=== PATIENT | male | born 1960 | race Caucasian/White ===

== ENCOUNTER 2018-01-24 20:03 | Emergency (ER) | payer BC ==
--- NOTE | 2018-01-24 20:27 | EDM.PDOC ---
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 TODAY , HAD BEEN MOVING HIS HEAVY FURNITURE OUT OF HIS HOUSE TODAY, AND AT 8 PM HAD ONSET OF 8/10 MID STERNAL CHEST PAIN WITH RIGHT ARM CRAMPING AND TOE CRAMPING WHICH HE RELATES TO THE HARD WORK OF CARRYING FURNITURE TODAY; HE HAS ASSOCIATED WITH [employer]. HAD SIMILAR EPISODE SEVERAL YEARS AGO AND TOLD THAT HE HAD A BIG HEART BUT NO HEART ATTACK ,BUT HAD CAD. HAS BEEN TREATED FRO HYPERTENSION AND BEEN FOLLOWED BY DR JEANE BARTHOLOMEW [employer] [facility] Onset: Today Duration: Minutes: (45 MINUTES AGO) Location: Reports: Chest, Abdomen Quality: Reports: Sharp Severity: Severe - Related Data Allergies Allergy/AdvReac Type Severity Reaction Status Date / Time No Known Allergies Allergy Verified 01/24/18 20:33 Home Meds: Home Meds Ascorbic Acid [Vitamin C] 0 mg PO DAILY 01/24/18 [History] Aspirin [Halfprin] 81 mg PO DAILY 01/24/18 [History] Cyanocobalamin (Vitamin B-12) [Vitamin B-12] 0 mcg PO DAILY 01/24/18 [History] LORazepam [Ativan] 0 mg PO ASDIRECTED 01/24/18 [History] Metoprolol Succinate [Toprol Xl] 0 mg PO DAILY 01/24/18 [History] Omeprazole 20 mg PO DAILY 01/24/18 [History] ED ROS GENERAL - Review of Systems Review Of Systems: See Below Constitutional: Reports: No Symptoms HEENT: Reports: No Symptoms Respiratory: Reports: No Symptoms Cardiovascular: Reports: Chest Pain Endocrine: Reports: No Symptoms GI/Abdominal: Reports: No Symptoms : Reports: No Symptoms Musculoskeletal: Reports: No Symptoms Skin: Reports: No Symptoms Neurological: Reports: No Symptoms Psychiatric: Reports: No Symptoms Hematologic/Lymphatic: Reports: No Symptoms Immunologic: Reports: No Symptoms ED EXAM, GENERAL - Physical Exam Exam: See Below Free Text/Narrative:: ANXIOUS 8/10 PAIN HAS DECREASED TO 5/10 MILDLY DIAPHORETIC Exam Limited By: No Limitations General Appearance: Alert, Moderate Distress Eye Exam: Bilateral Eye: Normal Inspection Ears: Normal External Exam, Normal Canal, Hearing Grossly Normal, Normal TMs Nose: Normal Inspection, Normal Mucosa Throat/Mouth: Normal Inspection, Normal Lips, Normal Teeth, Normal Gums, Normal Oropharynx, Normal Voice Head: Atraumatic, Normocephalic, Sinus Tenderness Neck: Normal Inspection, Supple, Non-Tender, Full Range of Motion Respiratory/Chest: No Respiratory Distress, Lungs Clear, Normal Breath Sounds, No Accessory Muscle Use Cardiovascular: Normal Peripheral Pulses, Regular Rate, Rhythm, No Edema, No Gallop, No JVD, No Murmur, No Rub Peripheral Pulses: 1+: Carotid (L), Carotid (R), Brachial (L), Brachial (R), Radial (L), Radial (R), Dorsalis Pedis (L), Dorsalis Pedis (R) GI/Abdominal: Normal Bowel Sounds, Soft, Non-Tender, No Organomegaly, No Distention, No Abnormal Bruit, No Mass (Male) Exam: No Hernia Rectal (Males) Exam: Normal Exam Back Exam: Normal Inspection Extremities: Normal Inspection, Non-Tender, No Pedal Edema, Normal Capillary Refill Neurological: Alert, CN II-XII Intact, Normal Cognition, Normal Reflexes Psychiatric: Normal Affect, Anxious Skin Exam: Warm, No Rash, Diaphoretic Lymphatic: No Adenopathy EKG INTERPRETATION Rhythm: Other (SINUS TACHYCARDIA) [place]: Normal P-Wave: Present QRS: Normal ST-T: Normal QT: Normal Comparison: NA - No Prior EKG Course - Vital Signs Last Recorded V/S: Last Vital Signs Temp 36.6 C 01/24/18 20:03 Pulse 114 H 01/24/18 20:03 Resp 28 H 01/24/18 20:03 BP 102/80 01/24/18 20:03 Pulse Ox 100 01/24/18 21:00 96/56 830PM HR 104, R 17 99% O2 SATS - Orders/Labs/Meds Orders: Active Orders 24 hr Category Date Time Status CXR [Chest 1V Frontal] [CR] Stat Exams 01/24/18 20:17 Taken Sodium Chloride 0.9% [Normal Saline] 1,000 ml Med 01/24/18 20:30 Active IV ASDIRECTED Sodium Chloride 0.9% [Normal Saline] 1,000 ml Med 01/24/18 21:30 Active IV ASDIRECTED EKG 12 Lead [EK] Routine Ther 01/24/18 20:17 Ordered EKG 12 Lead [EK] Routine Ther 01/24/18 20:17 Stop Req EKG 12 Lead [EK] Routine Ther 01/24/18 20:43 Ordered Medication Orders Sodium Chloride (Normal Saline) 1,000 mls @ 150 mls/hr IV ASDIRECTED SLADE Last Admin: 01/24/18 20:35 Dose: 150 mls/hr Sodium Chloride (Normal Saline) 1,000 mls @ 999 mls/hr IV ASDIRECTED SLADE Last Admin: 01/24/18 21:29 Dose: 999 mls/hr Labs: Laboratory Tests 01/24/18 01/24/18 01/24/18 Range/Units 20:25 20:25 20:25 WBC 18.0 H (4.5-12.0) X10-3/uL RBC 5.46 (4.30-5.75) x10(6)uL Hgb 18.0 H (11.5-15.5) g/dL Hct 52.2 H (30.0-51.3) % MCV 95.5 (80-96) fL MCH 33.0 (27.7-33.6) pg MCHC 34.6 (32.2-35.4) g/dL RDW 13.7 (11.5-15.5) % Plt Count 352 (125-369) X10(3)uL MPV 8.1 (7.4-10.4) fL Add Manual Diff Yes Neutrophils % (Manual) 77 (46-82) % Band Neutrophils % 7 H (0-6) % Lymphocytes % (Manual) 8 L (13-37) % Monocytes % (Manual) 7 (4-12) % Basophils % (Manual) 1 (0-2) % D-Dimer, Quantitative 0.26 (0.0-0.59) mg/LFEU Sodium (135-145) mmol/L Potassium (3.5-5.3) mmol/L Chloride (100-110) mmol/L Carbon Dioxide (21-32) mmol/L BUN (7-18) mg/dL Creatinine (0.70-1.30) mg/dL Est Cr Clr Drug Dosing Estimated GFR (MDRD) (>60) BUN/Creatinine Ratio (9-20) Glucose (80-116) mg/dL Calcium (8.6-10.2) mg/dL Total Bilirubin (0.1-1.3) mg/dL AST (5-25) IU/L ALT (12-36) U/L Alkaline Phosphatase (56-112) IU/L Troponin I < 0.017 L (<0.017-0.056) ng/mL Total Protein (6.0-8.0) g/dL Albumin (3.5-5.2) g/dL Globulin g/dL Albumin/Globulin Ratio 01/24/18 01/24/18 Range/Units 20:25 22:03 WBC (4.5-12.0) X10-3/uL RBC (4.30-5.75) x10(6)uL Hgb (11.5-15.5) g/dL Hct (30.0-51.3) % MCV (80-96) fL MCH (27.7-33.6) pg MCHC (32.2-35.4) g/dL RDW (11.5-15.5) % Plt Count (125-369) X10(3)uL MPV (7.4-10.4) fL Add Manual Diff Neutrophils % (Manual) (46-82) % Band Neutrophils % (0-6) % Lymphocytes % (Manual) (13-37) % Monocytes % (Manual) (4-12) % Basophils % (Manual) (0-2) % D-Dimer, Quantitative (0.0-0.59) mg/LFEU Sodium 138 (135-145) mmol/L Potassium 4.1 (3.5-5.3) mmol/L Chloride 101 (100-110) mmol/L Carbon Dioxide 20 L (21-32) mmol/L BUN 22 H (7-18) mg/dL Creatinine 2.4 H* (0.70-1.30) mg/dL Est Cr Clr Drug Dosing TNP Estimated GFR (MDRD) 28 L (>60) BUN/Creatinine Ratio 9.2 (9-20) Glucose 126 H (80-116) mg/dL Calcium 10.1 (8.6-10.2) mg/dL Total Bilirubin 2.7 H (0.1-1.3) mg/dL AST 20 (5-25) IU/L ALT 34 (12-36) U/L Alkaline Phosphatase 68 (56-112) IU/L Troponin I < 0.017 L (<0.017-0.056) ng/mL Total Protein 8.8 H (6.0-8.0) g/dL Albumin 4.8 (3.5-5.2) g/dL Globulin 4.0 g/dL Albumin/Globulin Ratio 1.2 Meds: Medications Generic Name Dose Route Start Last Admin Trade Name Freq PRN Reason Stop Dose Admin Sodium Chloride 1,000 mls @ 150 mls/hr 01/24/18 20:30 01/24/18 20:35 Normal Saline IV 150 mls/hr ASDIRECTED SLADE Administration Sodium Chloride 1,000 mls @ 999 mls/hr 01/24/18 21:30 01/24/18 21:29 Normal Saline IV 999 mls/hr ASDIRECTED SLADE Administration Discontinued Medications Generic Name Dose Route Start Last Admin Trade Name Freq PRN Reason Stop Dose Admin Aspirin 324 mg 01/24/18 20:28 01/24/18 20:07 Aspirin PO 01/24/18 20:29 324 mg ONETIME ONE Administration Lorazepam 1 mg 01/24/18 21:05 01/24/18 22:42 Ativan IVPUSH 01/24/18 21:06 Not Given ONETIME ONE Lorazepam 0.5 mg 01/24/18 21:10 01/24/18 21:21 Ativan IVPUSH 01/24/18 21:11 0.5 mg ONETIME ONE Administration Ondansetron HCl 4 mg 01/24/18 20:29 01/24/18 20:31 Zofran IVPUSH 01/24/18 20:30 4 mg ONETIME ONE Administration Departure - Departure Time of Disposition: 22:50 Disposition: Home, Self-Care 01 Clinical Impression: Dehydration, Vomiting, Food poisoning, Chronic kidney disease, stage 3, Bandemia Instructions: Food Poisoning and Marine Toxins, Dehydration, Adult, Easy-to- Read Referrals: PCP,None [Primary Care Provider] - Forms: ED Department Discharge Additional Instructions: YOUR CHEST PAIN AND TRANSIENT LOW LOW BLOOD PRESSURE CAME FROM: THE ABDOMINAL PAIN AND THE SUBSEQUENT VOMITING FROM ECOLI MEDIATED ENTEROTOXIN TACO REYES "FOOD POISONING" YOUR BP ALSO WAS LOW FROM THE DEHYDRATION SINCE YOU ARE GOING TO SEE YOUR MD TOMORROW I HAVE GIVEN TO YOU THE RECORDS FROM [facility] TO GIVE TO HIM YOU NEED TO HAVE YOUR RENAL (KIDNEY) BLOOD TESTS REPEATED I DO NOT THINK YOU HAD A HEMOLYTIC UREMIA SYNDROME DRINK AT LEAST 2 QUARTS OF WATER ADAY - My Orders Last 24 Hours: My Active Orders 01/24/18 20:17 CXR [Chest 1V Frontal] [CR] Stat EKG 12 Lead [EK] Routine EKG 12 Lead [EK] Routine 01/24/18 20:30 Sodium Chloride 0.9% [Normal Saline] 1,000 ml IV ASDIRECTED 01/24/18 20:43 EKG 12 Lead [EK] Routine 01/24/18 21:30 Sodium Chloride 0.9% [Normal Saline] 1,000 ml IV ASDIRECTED - Assessment/Plan Last 24 Hours: My Active Orders 01/24/18 20:17 CXR [Chest 1V Frontal] [CR] Stat EKG 12 Lead [EK] Routine EKG 12 Lead [EK] Routine 01/24/18 20:30 Sodium Chloride 0.9% [Normal Saline] 1,000 ml IV ASDIRECTED 01/24/18 20:43 EKG 12 Lead [EK] Routine 01/24/18 21:30 Sodium Chloride 0.9% [Normal Saline] 1,000 ml IV ASDIRECTED Assessment:: NO MYOCARIDIAL INFARCTION, LOW BLOOD PRESSURE FORM DEHYDRATION, ECOLI MEDIATED VOMITING. CHRONIC KIDNEY DISEASE LAB RESULT SUGGEST HE STAGE 4 KIDNEY DISEASE, THIS WILL PRAOBABLY GET BETTER WITH FUTHER HYDRATION, RESOLUTION OF THE CHEST PAIN AFTER THE VOMITING, MYALGIA MEDIATED BY THE E COLI TOXIN FROM THE FOOD POISONING Plan: KEEP YOU APPOINTMENT WITH DR CHING TOMORROW
[2018-01-24] MEDS ORDERED: Aspirin 81 MG Tab.Chew PO ONE (20:28)
[2018-01-24] MEDS ORDERED: Ondansetron 4 MG/2 ML SDV IVPUSH ONE (20:29)
[2018-01-24] MEDS ORDERED: Sodium Chloride 0.9% 1,000 ML IV SCH ×2 (20:30→21:30)
[2018-01-24] MEDS ORDERED: LORazepam 2 MG/ML SDV IVPUSH ONE ×2 (21:05→21:10)
--- NOTE | 2018-01-25 13:38 | CR ---
INDICATION: Chest pain, weakness. CHEST: An AP upright view of the chest was obtained portable and revealed overlying EKG leads. The heart did not appear enlarged. Mediastinum was unremarkable. An active infiltrate or effusion was not identified. IMPRESSION: No acute process. MTDD
== END 2018-01-24 23:14 | disposition home or self-care (01) ==
LOC: FB.ED 20:03
DX: T62.91XA Toxic effect of unspecified noxious substance eaten as food, accidental (unintentional), initial encounter (principal); R11.10 Vomiting, unspecified; E86.0 Dehydration; N18.3 Chronic kidney disease, stage 3 (moderate); D72.825 Bandemia; Z79.82 Long term (current) use of aspirin; Z79.899 Other long term (current) drug therapy
CPT/HCPCS: 71045; 80053; 84484; 85025; 85379; 93005; 96361; 96374; 96375; 99284; A9270; J2060; J2405; J7030; 36415